=== PATIENT | male | born 1960 | race African-American/Black ===

== ENCOUNTER 2018-01-25 21:18 | Emergency (ER) | payer MEDICAID ==
[~2018-01-25] VITALS: Ht 182.9 cm; Wt 79.8 kg
[~2018-01-25 21:18] MED LIST: PEPCID AC20 M2 PO; UNOBMED
[2018-01-25] MEDS ORDERED: Lidocaine 2% Visc 15ml soln ORAL ONE (22:00)
[2018-01-25] MEDS ORDERED: Mylanta II UD 30ml ORAL ONE (22:00)
[2018-01-25] MEDS ORDERED: Bacitracin Oint UD TOPIC ONE (22:45)
--- NOTE | 2018-01-25 22:51 | Emergency Room Report ---
History of Present Illness General Chief Complaint: Alcohol Intoxication Source: Patient, EMS Present Illness HPI Patient was just started discharged from the emergency department. He walked out to the bus stop and was feeling abdominal pain and back pain and called 911. They brought him back to the emergency department. States pain is 10/10 burning. No melena. EMS EKG normal. He has multiple complaints. Back pain - also 10/10, radiates to L leg Abrasion R elbow which he states happened from broken glass Epigastric pain 10/10, burning Hepatitis/cirrhosis This the note from the history: 57-year-old male with a reported history of cirrhosis, alcohol abuse, hepatitis C, presents with diffuse achy, nonradiating, moderate to severe abdominal pain, chronic low back pain, he reports but symptoms going on for about 3 years. He reports that he's been having intermittent vomiting and diarrhea for the past few years as well, but none today. He denies fevers, and reports not taking the medications for symptoms, and he reports the only time he drank recently was last night, and it was only 1 beer. This is the discussion: Patient appears to be in no distress, has a nontender abdomen when distracted, unremarkable examination, and is likely having chronic back pain and possibly drug-seeking. patient found to have elvated etoh level; labs unremarkable except mild leukopenia; no other abnormality seen He has not been vomiting, will dc home Labs: WBC 2.7, H/H = 10.8/33.0, LFTs normal, glucose = 111. BAL = 499. Rest normal. Dispo with alcohol intoxication and gastritis. Given Rx for pepcid. Allergies: Coded Allergies: No Known Allergies (Unverified , 01/25/18) Patient History Past Medical History: see triage record, other - alleges cirrhosis - Hep C Social History: Reports: smoking, alcohol use Social History Narrative lives with mother Reviewed Nursing Documentation: PMH: Agreed; PSxH: Agreed Nursing Documentation-PMH Hx Gastrointestinal Problems: Yes - gastritis,etoh abuse Review of Systems All Other Systems: negative except mentioned in HPI Physical Exam Vital Signs Date Time Temp Pulse Resp B/P (MAP) Pulse Ox O2 Delivery O2 Flow Rate FiO2 01/25/18 21:19 97.8 82 18 130/70 98 Room Air 97.9 Sp02 EP Interpretation: reviewed, normal General Appearance: well appearing, no apparent distress, GCS 15 Head: normocephalic Eyes: bilateral eye PERRL, bilateral eye EOMI, bilateral eye Scleral Injection ENT: moist mucus membranes Neck: supple Respiratory: lungs clear, normal breath sounds Cardiovascular #1: regular rate, rhythm Cardiovascular #2: 2+ radial (R) Gastrointestinal: normal inspection, normal bowel sounds, non tender, no mass, non-distended Genitourinary: no CVA tenderness Musculoskeletal: gait/station normal, normal range of motion, other, tender - lumbar area. Able to ambulate, sit, stand and lay down without difficulty Neurologic: alert, oriented x3, group underwriter III-XII nml as tested, motor strength/tone normal, DTRs symmetric, sensory intact, cerebellar normal, normal gait, speech normal Psychiatric: no suicidal/homicidal ideation, other - labile - mostly cooperative and appreciative of care Skin: normal inspection, warm/dry Medical Decision Making Diagnostic Impression: Primary Impression: Alcohol abuse Additional Impressions: Elbow abrasion Qualified Codes: S50.311A - Abrasion of right elbow, initial encounter Gastritis Qualified Codes: K29.20 - Alcoholic gastritis without bleeding Back pain Qualified Codes: M54.5 - Low back pain ER Course Patient represents post evaluation and discharge for alcohol intoxication and gastritis. Multiple other complaints. Labs reviewed. Need to exclude glass in elbow lac (small - [id number]). Will continue treatment with pepcid, mylanta, viscous lido and tylenol. Xray, no FB. Wounds dressed and steri strips applied. Patient observed and improved. Still with requests for opiates and back x- rays. Latter not indicated based on exam. Discussed need for follow up and also consideration for treatment for alcohol abuse. Sent to home via taxi. Patient stable for outpatient observation and treatment. reviewed and recorded in history Other X-Ray Diagnostic Results Other X-Ray Diagnostic Results : # of Views/Limited Vs Complete: 2 View Indication: Other EP Interpretation: Yes Interpretation: no dislocation, no fractures, other - STS and no FB Impression: Other Electronically Signed by: Electronically signed by Juan Alberto Isabel MD Last Vital Signs Date Time Temp Pulse Resp B/P (MAP) Pulse Ox O2 Delivery O2 Flow Rate FiO2 01/26/18 01:22 98.0 82 18 130/70 98 Room Air Status: improved Disposition: HOME, SELF-CARE Condition: Improved Scripts Mag Hydrox/Al Hydrox/Simeth (MAALOX MAXIMUM STRENGTH SUSP) 355 Ml Oral.susp 30 ML PO Q6HR, #240 ML Prov: Juan Alberto Isabel M.D. 01/26/18 Acetaminophen (Tylenol) 325 Mg Tablet 650 MG ORAL Q6H PRN for Prn Pain/Headache/Temp > 101, #20 TAB 0 Refills Prov: Juan Alberto Isabel M.D. 01/26/18 Referrals: TANJA PHILLIP,REFERRING (PCP) Juan Alberto Isabel M.D. Jan 25, 2018 22:51
[2018-01-25] MEDS ORDERED: Acetaminophen 500mg (ES) tab ORAL ONE (23:30)
[2018-01-26] MEDS ORDERED: MAALOX MAXIMUM355 M1 PO (00:09)
[2018-01-26] MEDS ORDERED: TYLENOL325 MG ORAL (00:09)
[2018-01-26 00:38] VITALS: BP 130/70
[2018-01-26 01:22] VITALS: BP 130/70
--- NOTE | 2018-01-26 11:07 | Diagnostic Imaging Report ---
Indication: Pain Findings: 3 views of the right elbow were obtained. No acute fractures, malalignment, erosions or periostitis are identified. Bone mineralization is within normal limits. Soft tissues are unremarkable. Impression: Negative examination of the elbow.
== END 2018-01-26 01:23 | disposition home or self-care (01) ==
LOC: EDBD 21:18 → EMR 21:35
DX: F10.10 Alcohol abuse, uncomplicated (principal); S50.311A Abrasion of right elbow, initial encounter; X58.XXXA Exposure to other specified factors, initial encounter; Y93.9 Activity, unspecified; Y92.9 Unspecified place or not applicable
CPT/HCPCS: 99284

== ENCOUNTER 2018-05-16 20:03 | Emergency (ER) | payer MEDICAID ==
[~2018-05-16] VITALS: Ht 182.9 cm; Wt 77.1 kg
[~2018-05-16 20:03] MED LIST changes: +MAALOX MAXIMUM355 M1 PO; +TYLENOL325 MG ORAL
[2018-05-16 20:10] VITALS: BP 105/73
--- NOTE | 2018-05-16 20:11 | Emergency Room Report ---
History of Present Illness General Chief Complaint: Flu Like Symptoms Source: Patient, EMS Present Illness HPI Patient presents with 2 days of epigastric pain, nausea, vomiting and diarrhea. He's been drinking beer. He has a history of gastritis in the past. He denies any fevers or chills. States the pain is 7/10 burning epigastric not radiating. He may have noticed some blood in his vomit and also in his stool. Denies dysuria. No fevers, chills. Having trouble keeping down food. No meds taken. No cough, chest pain, rashes, headache, depression. H/O stroke. No unilateral weakness. H/O HTN - questionable compliance. Allergies: Coded Allergies: No Known Allergies (Unverified , 01/25/18) Patient History Past Medical History: see triage record Social History: Reports: alcohol use; Denies: smoking, drug use Social History Narrative This with mother and stepfather Reviewed Nursing Documentation: PMH: Agreed; PSxH: Agreed Nursing Documentation-PMH Hx Hypertension: Yes Hx Gastrointestinal Problems: Yes - gastritis,etoh abuse Hx Cerebrovascular Accident: Yes - STROKE Review of Systems All Other Systems: negative except mentioned in HPI Physical Exam Vital Signs Date Time Temp Pulse Resp B/P (MAP) Pulse Ox O2 Delivery O2 Flow Rate FiO2 05/16/18 19:58 90 18 100/70 94 Room Air Sp02 EP Interpretation: reviewed, normal General Appearance: well appearing, no apparent distress, GCS 15, other - Alcohol on breath Head: normocephalic Eyes: left eye other - subconjunctival hemorrhage; bilateral eye PERRL, bilateral eye Scleral Injection ENT: moist mucus membranes Neck: full range of motion, supple Respiratory: lungs clear, normal breath sounds Cardiovascular #1: regular rate, rhythm Cardiovascular #2: 2+ radial (R) Gastrointestinal: normal inspection, normal bowel sounds, soft, no mass, non- distended, no guarding, no rebound, tenderness - Epigastric Genitourinary: no CVA tenderness Musculoskeletal: back normal, gait/station normal, normal range of motion Neurologic: alert, grossly normal, oriented - X2 Psychiatric: no suicidal/homicidal ideation, depressed affect Skin: normal inspection, warm/dry Medical Decision Making Diagnostic Impression: Primary Impression: Gastritis Qualified Codes: K29.21 - Alcoholic gastritis with bleeding Additional Impression: Alcohol intoxication Qualified Codes: F10.929 - Alcohol use, unspecified with intoxication, unspecified ER Course Patient presents with vomiting and epigastric pain after drinking alcohol. Differential includes gastritis, acute myocardial infarction, peptic ulcer disease, pancreatitis, gallbladder disease amongst others. Patient will be evaluated with EKG, chest x-ray and labs. The patient will be treated with IV hydration, Pepcid, Reglan and Benadryl. EKG NSR, NSSTTW changes. CXR clear. CBC with low WBC, anemia (similar to 2017). CMP essentially normal (glucose 124). Normal lipase and troponin. BA - 287. Improved with treatment. Ambulatory. Still with slight depressed mentation and sleeping. Gibson to be stable for discharge after observation and metabolism of alcohol. Signed out the Dr. Bernstein. Laboratory Tests Test 05/16/18 20:40 05/16/18 21:32 White Blood Count 3.0 K/UL (4.8-10.8) L Red Blood Count 3.78 M/UL (4.70-6.10) L Hemoglobin 10.5 G/DL (14.2-18.0) L Hematocrit 33.1 % (42.0-52.0) L Mean Corpuscular Volume 87 FL (80-99) Mean Corpuscular Hemoglobin 27.8 PG (27.0-31.0) Mean Corpuscular Hemoglobin Concent 31.8 G/DL (32.0-36.0) L Red Cell Distribution Width 13.9 % (11.6-14.8) Platelet Count 267 K/UL (150-450) Mean Platelet Volume 5.2 FL (6.5-10.1) L Neutrophils (%) (Auto) % (45.0-75.0) Lymphocytes (%) (Auto) % (20.0-45.0) Monocytes (%) (Auto) % (1.0-10.0) Eosinophils (%) (Auto) % (0.0-3.0) Basophils (%) (Auto) % (0.0-2.0) Differential Total Cells Counted 100 Neutrophils % (Manual) 42 % (45-75) L Lymphocytes % (Manual) 45 % (20-45) Monocytes % (Manual) 7 % (1-10) Eosinophils % (Manual) 4 % (0-3) H Basophils % (Manual) 2 % (0-2) Band Neutrophils 0 % (0-8) Platelet Estimate Adequate Platelet Morphology Normal Hypochromasia 1+ Anisocytosis 1+ Prothrombin Time 10.4 SEC (9.30-11.50) Prothrombin Time INR 1.0 (0.9-1.1) PTT 32 SEC (23-33) Sodium Level 143 MMOL/L (136-145) Potassium Level 3.8 MMOL/L (3.5-5.1) Chloride Level 104 MMOL/L (98-107) Carbon Dioxide Level 26 MMOL/L (21-32) Anion Gap 13 mmol/L (5-15) Blood Urea Nitrogen 14 mg/dL (7-18) Creatinine 1.1 MG/DL (0.55-1.30) Estimate Glomerular Filtration Rate > 60 mL/min (>60) Glucose Level 124 MG/DL (74-106) H Calcium Level 9.0 MG/DL (8.5-10.1) Total Bilirubin 0.4 MG/DL (0.2-1.0) Aspartate Amino Transferase (AST) 25 U/L (15-37) Alanine Aminotransferase (ALT) 19 U/L (12-78) Alkaline Phosphatase 68 U/L (46-116) Total Creatine Kinase 125 U/L (26-308) Troponin I 0.006 ng/mL (0.000-0.056) Total Protein 8.2 G/DL (6.4-8.2) Albumin 3.6 G/DL (3.4-5.0) Globulin 4.6 g/dL Albumin/Globulin Ratio 0.8 (1.0-2.7) L Lipase 119 U/L (73-393) Serum Alcohol 287 mg/dL Urine Color Pale yellow Urine Appearance Clear Urine pH 7 (4.5-8.0) Urine Specific [place] 1.015 (1.005-1.035) Urine Protein 1+ (NEGATIVE) H Urine Glucose (UA) Negative (NEGATIVE) Urine Ketones 2+ (NEGATIVE) H Urine Blood Negative (NEGATIVE) Urine Nitrite Negative (NEGATIVE) Urine Bilirubin Negative (NEGATIVE) Urine Urobilinogen Normal MG/DL (0.0-1.0) Urine Leukocyte Esterase 1+ (NEGATIVE) H Urine RBC 0-2 /HPF (0 - 0) H Urine WBC 2-4 /HPF (0 - 0) Urine Squamous Epithelial Cells None /LPF (NONE/OCC) Urine Bacteria Few /HPF (NONE) Urine Opiates Screen Negative (NEGATIVE) Urine Barbiturates Screen Negative (NEGATIVE) Phencyclidine (PCP) Screen Negative (NEGATIVE) Urine Amphetamines Screen Negative (NEGATIVE) Urine Benzodiazepines Screen Negative (NEGATIVE) Urine Cocaine Screen Negative (NEGATIVE) Urine Marijuana (THC) Screen Negative (NEGATIVE) EKG Diagnostic Results Rate: normal Rhythm: NSR ST Segments: no acute changes Rhythm Strip Diag. Results Rhythm: NSR, no PVC's, no ectopy Chest X-Ray Diagnostic Results Chest X-Ray Diagnostic Results : Chest X-Ray Ordered: Yes # of Views/Limited/Complete: 1 View Indication: Other EP Interpretation: Yes Interpretation: no consolidation, no effusion, no pneumothorax Impression: No acute disease Electronically Signed by: Electronically signed by Juan Alberto Isabel MD Status: improved Disposition: HOME, SELF-CARE Condition: Improved Scripts Acetaminophen (Tylenol) 325 Mg Tablet 650 MG ORAL Q6H PRN for Prn Pain/Headache/Temp > 101, #20 TAB 0 Refills Prov: Juan Alberto Isabel MD 05/16/18 Famotidine (PEPCID AC) 20 Mg Tablet 20 MG PO DAILY, #30 TAB Prov: Juan Alberto Isabel MD 05/16/18 Juan Alberto Isabel MD May 16, 2018 20:11
[2018-05-16] MEDS ORDERED: DiphenhydrAMINE 50mg/ml Inj IVP ONE (20:15)
[2018-05-16] MEDS ORDERED: Metoclopramide 10mg/2ml Inj IVP ONE (20:15)
[2018-05-16 21:07] LABS: ANION GAP 13 mmol/L (5-15); BLOOD UREA NITROGEN 14 mg/dL (7-18); CARBON DIOXIDE 26 MMOL/L (21-32); CHLORIDE 104 MMOL/L (98-107); CREATININE 1.1 MG/DL (0.55-1.30); POTASSIUM 3.8 MMOL/L (3.5-5.1); SODIUM 143 MMOL/L (136-145)
[2018-05-16 21:10] LABS: HEMATOCRIT 33.1 % (42.0-52.0); HEMOGLOBIN 10.5 G/DL (14.2-18.0); MEAN CORPUSCULAR VOLUME 87 FL (80-99); PLATELET COUNT 267 K/UL (150-450); RED BLOOD COUNT 3.78 M/UL (4.70-6.10); RED CELL DISTRIBUTION WIDTH 13.9 % (11.6-14.8)
[2018-05-16 21:11] LABS: ALANINE AMINOTRANSFERASE 19 U/L (12-78); ALBUMIN 3.6 G/DL (3.4-5.0); ALBUMIN/GLOBULIN RATIO 0.8 (1.0-2.7); ALKALINE PHOSPHATASE 68 U/L (46-116); ASPARTATE AMINO TRANSFERASE 25 U/L (15-37); BILIRUBIN,TOTAL 0.4 MG/DL (0.2-1.0); CREATINE KINASE 125 U/L (26-308)
[2018-05-16 21:59] LABS: APPEARANCE,URINE CLEAR; BILIRUBIN, URINE NEGATIVE (NEGATIVE); COLOR,URINE PALE YELLOW; GLUCOSE, URINE (UA) NEGATIVE (NEGATIVE); KETONES,URINE 2+ (NEGATIVE); LEUKOCYTE ESTERASE ,URINE 1+ (NEGATIVE); NITRITE,URINE NEGATIVE (NEGATIVE); PH,URINE 7 (4.5-8.0); PROTEIN,URINE 1+ (NEGATIVE); UROBILINOGEN,URINE NORMAL MG/DL (0.0-1.0)
[2018-05-16] MEDS ORDERED: TYLENOL325 MG ORAL (23:35)
[2018-05-16] MEDS ORDERED: PEPCID AC20 M2 PO (23:35)
[2018-05-17 02:06] VITALS: BP 105/73
== END 2018-05-17 02:06 | disposition home or self-care (01) ==
LOC: EDBD 20:03 → EMR 21:03
DX: K29.21 Alcoholic gastritis with bleeding (principal); F10.929 Alcohol use, unspecified with intoxication, unspecified; I10 Essential (primary) hypertension; Z86.73 Personal history of transient ischemic attack (TIA), and cerebral infarction without residual deficits
CPT/HCPCS: 36415; 71045; 80053; 80307; 80329; 81003; 82550; 83690; 84484; 85007; 85025; 85610; 85730; 93005; 96361; 96374; 96375; 99284; J1200; J2765; S0028

== ENCOUNTER 2018-12-04 09:00 | Emergency (ER) | payer MEDICAID ==
[~2018-12-04] VITALS: Ht 182.9 cm; Wt 77.1 kg
--- NOTE | 2018-12-04 09:05 | NUR ---
attempted to take EKG, patient became verbally agressive and stated "I don't want anything done on me, don't touch me." ERMD aware and notified.
[2018-12-04 09:10] VITALS: BP 102/72
--- NOTE | 2018-12-04 09:10 | NUR ---
ED Nurse Note: pt was brought in by [facility] and was picked up from a bus c/o cp. pt stated that he has pain on the mid sternal area when he coughs, pt stated he ahs hx of kidney cancer and was complaining of lower back pain. pt vs within normal limit. with ekg on nsr. ermd on bedside. will continue to monitor.
--- NOTE | 2018-12-04 09:20 | NUR ---
ED Nurse Note: iv stablished and ivf starter and po med given per emrd order, pt able to tolerate. blood drawn and was sent to lab. will continue to monitor.
--- NOTE | 2018-12-04 09:21 | NUR ---
ED Nurse Note: MURAL PAINTER ON BEDSIDE
[2018-12-04 09:34] LABS: BASOPHILS % (AUTO) 1.9 % (0.0-2.0); EOSINOPHILS % (AUTO) 4.6 % (0.0-3.0); HEMATOCRIT 34.5 % (42.0-52.0); HEMOGLOBIN 10.4 G/DL (14.2-18.0); LYMPHOCYTES % (AUTO) 43.6 % (20.0-45.0); MEAN CORPUSCULAR VOLUME 95 FL (80-99); MONOCYTES % (AUTO) 13.5 % (1.0-10.0); NEUTROPHILS % (AUTO) 36.4 % (45.0-75.0); PLATELET COUNT 204 K/UL (150-450); RED BLOOD COUNT 3.64 M/UL (4.70-6.10); RED CELL DISTRIBUTION WIDTH 20.5 % (11.6-14.8)
[2018-12-04 09:40] LABS: ANION GAP 8 mmol/L (5-15); BLOOD UREA NITROGEN 15 mg/dL (7-18); CALCIUM 8.6 MG/DL (8.5-10.1); CARBON DIOXIDE 28 MMOL/L (21-32); CHLORIDE 109 MMOL/L (98-107); CREATININE 0.7 MG/DL (0.55-1.30); POTASSIUM 3.6 MMOL/L (3.5-5.1); SODIUM 145 MMOL/L (136-145)
[2018-12-04 10:03] LABS: ALANINE AMINOTRANSFERASE 17 U/L (12-78); ALBUMIN 4.1 G/DL (3.4-5.0); ALBUMIN/GLOBULIN RATIO 1.2 (1.0-2.7); ALKALINE PHOSPHATASE 72 U/L (46-116); ASPARTATE AMINO TRANSFERASE 27 U/L (15-37); BILIRUBIN,TOTAL 0.3 MG/DL (0.2-1.0); CREATINE KINASE 114 U/L (26-308)
[2018-12-04] MEDS ORDERED: PROMETHAZINE-D118 ML ORAL (10:08)
[2018-12-04] MEDS ORDERED: TYLENOL EXTRA500 MG ORAL (10:08)
[2018-12-04 10:10] VITALS: BP 102/72
--- NOTE | 2018-12-04 10:10 | NUR ---
Homeless Discharge: Patient is being discharged from medical care. Awake, alert and oriented x3. After care instructions, including referral to community resources were given. Patient verbalized understanding of After care instructions; at this time patient does not request medications, equipment or placement. Patient signed patient consent in the medical record for patient destination upon discharge. All medical devices such as IV and ID band were removed.pt was given sandwich and is on weather appropriate clothing. Patient ambulated out with all personal belongings with steady gait.
--- NOTE | 2018-12-04 11:32 | Emergency Room Report ---
History of Present Illness General Chief Complaint: Chest Pain Source: Patient Present Illness HPI 58-year-old male presents ED for evaluation. Patient brought in by EMS from Street. Complaining of chest pain. Right-sided, dull, 7 out of 10, worse with coughing. States he has been coughing for the last 2 days. Cough is dry. Denies fevers or chills. Denies shortness of breath. Denies alcohol use. Alcohol use. Denies drug use. No other aggravating relieving factors. Denies any other associated symptoms Allergies: Coded Allergies: No Known Allergies (Unverified , 01/25/18) Patient History Past Medical History: HTN, CAD Past Surgical History: none Pertinent Family History: none Social History: Reports: alcohol use; Denies: smoking, drug use Immunizations: UTD Reviewed Nursing Documentation: PMH: Agreed; PSxH: Agreed Nursing Documentation-PMH Hx Hypertension: Yes Hx Gastrointestinal Problems: Yes - gastritis,etoh abuse Hx Cerebrovascular Accident: Yes - STROKE Review of Systems All Other Systems: negative except mentioned in HPI Physical Exam Vital Signs Date Time Temp Pulse Resp B/P (MAP) Pulse Ox O2 Delivery O2 Flow Rate FiO2 12/04/18 09:01 98.2 70 16 102/72 (82) 97 Room Air Sp02 EP Interpretation: reviewed, normal General Appearance: no apparent distress, alert, GCS 15, non-toxic Head: normocephalic, atraumatic Eyes: bilateral eye normal inspection, bilateral eye PERRL ENT: hearing grossly normal, normal pharynx, no angioedema, normal voice Neck: full range of motion, supple/symm/no masses Respiratory: lungs clear, normal breath sounds, speaking full sentences, other - reproducible R lateral chest wall pain Cardiovascular #1: regular rate, rhythm, no edema Cardiovascular #2: 2+ carotid (R), 2+ carotid (L), 2+ radial (R), 2+ radial (L) , 2+ dorsalis pedis (R), 2+ dorsalis pedis (L) Gastrointestinal: normal bowel sounds, non tender, soft, non-distended, no guarding, no rebound Rectal: deferred Genitourinary: normal inspection, no CVA tenderness Musculoskeletal: back normal, gait/station normal, normal range of motion, non- tender Neurologic: alert, oriented x3, responsive, motor strength/tone normal, sensory intact, speech normal Psychiatric: judgement/insight normal, memory normal, mood/affect normal, no suicidal/homicidal ideation Reflexes: 3+ bicep (R), 3+ bicep (L), 3+ tricep (R), 3+ tricep (L), 3+ knee (R) , 3+ knee (L) Lymphatic: no adenopathy Medical Decision Making Homeless Attestation I, The treating physician Dr. Bernstein, have assessed and agrees that patient is medically stable for discharge to an outpatient disposition. Diagnostic Impression: Primary Impression: Upper respiratory infection Qualified Codes: J06.9 - Acute upper respiratory infection, unspecified Additional Impression: Chest wall pain ER Course Hospital Course 58-year-old male presents ED complaining of reproducible chest wall pain with coughing Differential diagnoses include: Rib fracture, MT/unstable angina, contusion, muscle strain Clinical course Patient placed on stretcher. After initial history and physical I ordered labs , EKG, chest x-ray. labs reviewed- all electrolytes normal, troponins negative, no leukocytosis, hemoglobin/hematocrit stable EKG - NSR, no acute ischemic changes interpreted by me Chest x-ray-no cardiomegaly, no rib fracture, no pneumothorax, no acute process Pain muscular. Likely secondary to coughing. No focal consolidation. Afebrile. Stable vitals. Patient could likely be discharged home with close outpatient follow-up patient became verbally abusive and aggressive with nursing staff and security. Patient escorted from ED I. I feel this is a highly complex case requiring extensive working including EKG/Rhythm strip, Xray/CT/US, Blood/urine lab work, repeat exams while in ED, and administration of strong opiates/narcotics for pain control, admission to hospital or close patient follow up. Diagnosis - URI, chest wall pain Stable and discharged to home with prescription for tylenol, promethazine/DM. Instructed to followup with PMD. Return to ED if symptoms recur or worsen Labs Test 12/04/18 09:19 White Blood Count 4.0 K/UL (4.8-10.8) Red Blood Count 3.64 M/UL (4.70-6.10) Hemoglobin 10.4 G/DL (14.2-18.0) Hematocrit 34.5 % (42.0-52.0) Mean Corpuscular Volume 95 FL (80-99) Mean Corpuscular Hemoglobin 28.7 PG (27.0-31.0) Mean Corpuscular Hemoglobin Concent 30.2 G/DL (32.0-36.0) Red Cell Distribution Width 20.5 % (11.6-14.8) Platelet Count 204 K/UL (150-450) Mean Platelet Volume 5.0 FL (6.5-10.1) Neutrophils (%) (Auto) 36.4 % (45.0-75.0) Lymphocytes (%) (Auto) 43.6 % (20.0-45.0) Monocytes (%) (Auto) 13.5 % (1.0-10.0) Eosinophils (%) (Auto) 4.6 % (0.0-3.0) Basophils (%) (Auto) 1.9 % (0.0-2.0) Sodium Level 145 MMOL/L (136-145) Potassium Level 3.6 MMOL/L (3.5-5.1) Chloride Level 109 MMOL/L (98-107) Carbon Dioxide Level 28 MMOL/L (21-32) Anion Gap 8 mmol/L (5-15) Blood Urea Nitrogen 15 mg/dL (7-18) Creatinine 0.7 MG/DL (0.55-1.30) Estimat Glomerular Filtration Rate > 60 mL/min (>60) Glucose Level 126 MG/DL (74-106) Calcium Level 8.6 MG/DL (8.5-10.1) Total Bilirubin 0.3 MG/DL (0.2-1.0) Aspartate Amino Transf (AST/SGOT) 27 U/L (15-37) Alanine Aminotransferase (ALT/SGPT) 17 U/L (12-78) Alkaline Phosphatase 72 U/L (46-116) Total Creatine Kinase 114 U/L (26-308) Creatine Kinase MB 1.0 NG/ML (0.0-3.6) Creatine Kinase MB Relative Index 0.8 Troponin I 0.000 ng/mL (0.000-0.056) Pro-B-Type Natriuretic Peptide 60 pg/mL (0-125) Total Protein 7.4 G/DL (6.4-8.2) Albumin 4.1 G/DL (3.4-5.0) Globulin 3.3 g/dL Albumin/Globulin Ratio 1.2 (1.0-2.7) EKG Diagnostic Results Rate: normal Rhythm: NSR ST Segments: no acute changes ASA given to the pt in ED: No Rhythm Strip Diag. Results EP Interpretation: yes Rhythm: NSR, no PVC's, no ectopy Chest X-Ray Diagnostic Results Chest X-Ray Diagnostic Results : Chest X-Ray Ordered: Yes # of Views/Limited/Complete: 1 View Indication: Chest Pain EP Interpretation: Yes Interpretation: no consolidation, no effusion, no pneumothorax, no acute cardiopulmonary disease Impression: No acute disease Electronically Signed by: Electronically signed by Agustin Bernstein MD Last Vital Signs Date Time Temp Pulse Resp B/P (MAP) Pulse Ox O2 Delivery O2 Flow Rate FiO2 12/04/18 10:10 98.2 70 16 102/72 97 Room Air Status: improved Disposition: HOME, SELF-CARE Condition: Stable Scripts Acetaminophen* (TYLENOL EXTRA STRENGTH*) 500 Mg Tablet 500 MG ORAL Q8H PRN for Prn Headache/Temp > 101, #30 TAB 0 Refills Prov: Agustin Bernstein MD 12/04/18 D-Methorphan Hb/Prometh Hcl* (PROMETHAZINE-DM SYRUP*) 118 Ml Syrup 5 ML ORAL Q6H PRN for For Cough, #118 ML 0 Refills Prov: Agustin Bernstein MD 12/04/18 Patient Instructions: Nonspecific Chest Pain, Upper Respiratory Infection, Adult, [id number] Agustin Bernstein MD Dec 04, 2018 11:32
--- NOTE | 2018-12-04 12:37 | Diagnostic Imaging Report ---
Indication: Chest pain Comparison: 05/16/2018 A single view chest radiograph was obtained. Findings: No definite infiltrate or pulmonary vascular congestion identified. The heart is enlarged. The bones are unremarkable. Impression: No acute disease
== END 2018-12-04 10:10 | disposition home or self-care (01) ==
LOC: EDBD 09:00 → EMR 09:14
DX: J06.9 Acute upper respiratory infection, unspecified (principal); R07.89 Other chest pain; I10 Essential (primary) hypertension; I25.10 Atherosclerotic heart disease of native coronary artery without angina pectoris; Z86.73 Personal history of transient ischemic attack (TIA), and cerebral infarction without residual deficits
CPT/HCPCS: 36415; 71045; 80053; 82550; 82553; 83880; 84484; 85025; 93005; 99284; J7040